=== PATIENT | male | born 1985 | race Caucasian/White ===

== ENCOUNTER 2020-07-06 16:32 | Observation (INO) ==
[2020-07-06] MEDS ORDERED: IOPAMIDOL 100 ML BOTTLE IV ONE (16:33)
[2020-07-06] MEDS ORDERED: 0.9 % SODIUM CHLORIDE 1,000 ML IV ONE (16:51)
[2020-07-06] MEDS ORDERED: ONDANSETRON 4 MG/2 ML VIAL IV ONE (16:51)
--- NOTE | 2020-07-06 16:57 | Emergency Department Note ---
HPI General Chief complaint: Constipation Stated complaint: constipation Time Seen by Provider: 07/06/20 16:35 Source: patient Mode of arrival: ambulatory Limitations: no limitations History of Present Illness HPI Narrative: Narrative: 34-year-old male patient presents emergency department with chief complaint of worsening abdominal discomfort, bloating, nausea, vomiting x4 days. Patient has known history of spina bifida and resulting neurogenic bowel/bladder. Over the last 4 days he has noticed every time he eats or drinks anything he becomes profusely nauseated and "vomited back up". Approximately 2 days ago he began to develop left lower quadrant abdominal pain. He had a scant bowel movement yesterday but nothing today. He does mention that his bowel movements tend to be erratic. Patient also admits to having a recent cold and a lingering nonproductive cough. He also admits to some mild runny nose. He denies any known Covid exposure. ROS: Denies systemic illness, fever, sweats, chills. Denies headaches, tinnitus, or vision changes. Admits to mild shortness of breath associated with his cough. Denies retrosternal chest pain or palpitations. Denies dysuria, hematuria, urinary frequency, or urinary urgency. Admits to ongoing generalized weakness greater to his lower extremities. Related Data Home Medications Medication Instructions Recorded Confirmed epinephrine 0.3 mg/0.3 mL 0.3 mg IM ONCE each 11/03/14 07/06/20 injection, auto-injector Allergies Allergy/AdvReac Type Severity Reaction Status Date / Time latex [LATEX] Allergy Severe Anaphylaxis Verified 03/14/20 06:58 Review of Systems ROS ROS Narrative: Narrative: All systems ED: reviewed and negative except as stated. [facility] Narrative Patient History Narrative: Narrative: Medical/Surgical/Family History All Active Problems (Updated 07/06/20 @ 20:09 by Israel Valles PA-C) Abdominal pain (Acute) Nausea & vomiting (Acute) Proctocolitis (Acute) Urinary tract infection (Acute) Urinary tract infection associated with catheterization of urinary tract (Acute) Bladder trabeculation (Acute) Neurogenic bladder (Acute 11/09/13) Diarrhea (Acute) Constipation (Acute) Medical History Bladder trabeculation (Acute) Constipation (Acute) Diarrhea (Acute) Neurogenic bladder (Acute 11/09/13) Surgical History History of adenoidectomy (Inactive) History of brain shunt (Inactive) hydrocephalus/revision History of hip surgery (Inactive) bilateral hip dyplasia with 2nd surg History of spinal cord injury (Inactive) 1987 removal of myelomeninglocoele for spinal bifita Status post left foot surgery (Inactive) 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 He is speaking complete sentences. No nasal flaring. No accessory muscle use. He is afebrile, mildly tachycardic with a heart rate of 109, other vital signs normal.) Head Head: Present normocephalic Eye Eye: Present normal appearance, PERRL and EOMI; Absent scleral icterus and conjunctival injection ENT ENT: Present normal oropharynx and mucous membranes dry Neck Neck: Present trachea midline; Absent lymphadenopathy and thyromegaly Chest Chest: Present symmetric chest wall rise Respiratory Respiratory: Present wheezes (Expiratory wheezing heard to the right base and mid chest.), prolonged expiratory phase and decreased breath sounds (Rhonchi heard to the right mid chest that did not clear with cough.); Absent normal lung sounds bilaterally, respiratory distress, rales/crackles, stridor and accessory muscle use Cardiovascular Cardiovascular: Present regular rate and normal rhythm; Absent systolic murmur and diastolic murmur Adbominal Abdominal: Present soft, distention, tenderness, diminished bowel sounds and scar (Several large well-healed surgical scars to the patient's abdomen.); Absent guarding, rebound, rigidity, organomegaly and mass Extremities Extremities: Present normal inspection and normal capillary refill; Absent full ROM and tenderness Neurological Neurological: Present alert, oriented X3 and motor sensory deficit (Considerably decreased strength to the patient's lower extremities secondary to spina bifida.); Absent normal gait (Patient is wheelchair-bound and does not ambulate independently.) Psychiatric Psychiatric: Present normal affect and normal mood Skin Skin: Present warm (WNL), dry and normal color Course Course Course Narrative: The differential diagnosis of diffuse abdominal pain in the adult patient is broad and includes the following: Bowel obstruction, perforation of the GI tract, acute/chronic mesenteric ischemia, abdominal aortic aneurysm (AAA), inflammatory bowel disease (ulcerative colitis/Crohn disease), viral gastroenteritis, spontaneous bacterial peritonitis, colorectal cancer, celiac disease, ketoacidosis, adrenal insufficiency, foodborne illness, IBS, constipation, diverticulosis, and lactose intolerance. Patient has known history of neurogenic bowel/bladder. He has been nauseated and vomiting any food or fluid that he intakes over the last several days. This is highly suggestive of bowel obstruction. He also has been ill with a cough and congestion for over a week. His lung sounds showed wheezing and rhonchi. I am going to get a portable chest x-ray as well as an abdominal x-ray series looking for abnormality. We are going to get some screening laboratory studies as well. Patient was given normal saline 1000 mL as a bolus. He was also given Zofran 4 mg IVP to help with his nausea. Reevaluation(s) Reevaluation #1: A review the patient's diagnostics of the following: CBC WBC 11.0, RBC 4.65, hemoglobin 12.7, hematocrit 39.1, platelets 404. Lactic acid 0.7. Chemistry panel glucose 115, ionized calcium 1.13, all others normal limits. Procalcitonin 0.11. Chest x-ray read as a normal chest by the radiologist. Abdominal x-ray is read as decompressed GI tract but no definitive evidence of bowel obstruction. There was mention of christian of calcification in the true pelvis which almost certainly collection of bladder stone spanning 4 cm. Radiologist also mentions severe right and moderate left congenital hip dysplasia. Patient continues to be symptomatic so I reached out to our general surgeon (Dr. Reyna) to discuss the case with him. Time: 18:15 Reevaluation #2: At this time the general surgeon was able to review the plain radiographs of the abdomen and did request a CT scan of the patient's ab domen/pelvis to be obtained to give a better understanding of the patient's condition. With this in mind the CT scan was ordered as requested. I went into discussed with the patient to then mention that she has had some lower pelvic burning coupled with the abdominal bloating. He does have known history of neurogenic bladder as well as frequent UTIs. We are going to obtain a catheter urine sample and perform a UAD looking for infection. Time: 18:28 Reevaluation #3: CT scan of the abdomen/pelvis with contrast shows evidence consistent with neurogenic bladder. There was mention of possible proctocolitis involving the descending and rectosigmoid colon as well as possible mild left abdominal small bowel ileus. I discussed the CT scan findings with the general surgeon who mentioned that the patient should be admitted to the hospital under observation. He wanted to review the CT scan results with the radiologist to determine the next steps of treatment. He requested the holding orders be placed for the patient and that he would follow him in the morning. I went and discussed the admission with the patient who verbalized understanding. At this time I will place holding orders as requested. Afterwards, all further treatment decisions, modalities, and ultimate patient disposition will be carried out by the general surgeon. Time: 20:07 Additional Reevaluation(s): 21:00 - Patient began to complain of some increased abdominal discomfort prior to departing the emergency department for the [facility] floor. He was given morphine 2 mg IVP here. An order for morphine 2 mg IVP every 46 hours as needed was also placed. Vital Signs Vital signs: Vital Signs Temperature 97.9 F 07/06/20 16:33 Pulse Rate 109 H 07/06/20 16:33 Respiratory Rate 16 07/06/20 16:33 Blood Pressure 145/97 07/06/20 16:33 Pulse Oximetry (%) 96 07/06/20 16:33 Temperature 97.9 F 07/06/20 16:33 Pulse Rate 109 H 07/06/20 16:33 Respiratory Rate 16 07/06/20 16:33 Blood Pressure 145/97 07/06/20 16:33 Pulse Oximetry (%) 96 07/06/20 16:33 [facility] MDM Narrative Medical decision making narrative: Narrative: Lab Data Lab results reviewed: Yes I reviewed the patient's lab results. Result diagrams: 07/06/20 17:17 Labs: Lab Results 02/07/06/20 07/06/20 Range/Units 17:17 17:17 17:17 WBC 11.0 (4.5-11.0) K/mcL RBC 4.65 (4.50-5.90) M/mcL Hgb 12.7 L (13.5-16.5) g/dL Hct 39.1 L (41.0-55.0) % POC Hct 40 L (41-55) % MCV 84.1 (80.0-100.0) fL MCH 27.3 (26.0-34.0) pg MCHC 32.5 (31.0-36.0) g/dL RDW 13.2 (11.5-14.5) % Plt Count 404 (140-440) K/mcL MPV 9.6 (7.4-10.4) fL Neut % (Auto) 62.5 (38.0-78.0) % Lymph % (Auto) 20.5 (15.0-49.0) % [place] % (Auto) 15.2 H (1.0-12.0) % Eos % (Auto) 1.3 (0.0-7.0) % Baso % (Auto) 0.5 (0.0-2.0) % Lymph # (Auto) 2.26 (1.50-4.80) K/mcL [place] # (Auto) 1.67 H (0.10-0.90) K/mcL Eos # (Auto) 0.14 (0.00-0.70) K/mcL Baso # (Auto) 0.06 (0.00-0.20) K/mcL Absolute Neutrophils 6.89 (1.80-8.00) K/mcL VBG Lactic Acid 0.7 (0.5-2.0) mmol/L POC Sodium 140 (133-145) mEq/L POC Potassium 3.4 (3.3-5.1) mEql/L POC Chloride 102 (96-108) mEq/L POC Total CO2 27 (22-30) mmol/L POC BUN 10 (6-20) mg/dL POC Creatinine 0.6 (0.6-1.2) mg/dL POC Glucose 115 H (70-105) mg/dL POC WB Ioniz Calcium 1.13 L (1.16-1.32) mmEq/L Procalcitonin (<0.10) ng/mL 07/06/20 Range/Units 17:17 WBC (4.5-11.0) K/mcL RBC (4.50-5.90) M/mcL Hgb (13.5-16.5) g/dL Hct (41.0-55.0) % POC Hct (41-55) % MCV (80.0-100.0) fL MCH (26.0-34.0) pg MCHC (31.0-36.0) g/dL RDW (11.5-14.5) % Plt Count (140-440) K/mcL MPV (7.4-10.4) fL Neut % (Auto) (38.0-78.0) % Lymph % (Auto) (15.0-49.0) % [place] % (Auto) (1.0-12.0) % Eos % (Auto) (0.0-7.0) % Baso % (Auto) (0.0-2.0) % Lymph # (Auto) (1.50-4.80) K/mcL [place] # (Auto) (0.10-0.90) K/mcL Eos # (Auto) (0.00-0.70) K/mcL Baso # (Auto) (0.00-0.20) K/mcL Absolute Neutrophils (1.80-8.00) K/mcL VBG Lactic Acid (0.5-2.0) mmol/L POC Sodium (133-145) mEq/L POC Potassium (3.3-5.1) mEql/L POC Chloride (96-108) mEq/L POC Total CO2 (22-30) mmol/L POC BUN (6-20) mg/dL POC Creatinine (0.6-1.2) mg/dL POC Glucose (70-105) mg/dL POC WB Ioniz Calcium (1.16-1.32) mmEq/L Procalcitonin 0.11 H (<0.10) ng/mL Radiology Data Radiology results reviewed: Yes I reviewed the patient's radiology results. Radiology results narrative: Ordering Physician: Israel Valles PA-C Date of Service: 07/06/20 Procedure(s): XR chest 1V portable Accession Number(s): [id number] CLINICAL INFORMATION: Cough COMPARISON: None. TECHNIQUE: Portable FINDINGS: The heart size, mediastinum and pulmonary vessels are unremarkable. The lungs are clear. There are no effusions. CUSTOMER RESOLUTION SPECIALIST shunt catheter overlies the right neck and chest. The bones and soft tissues are within normal limits. IMPRESSION: Normal chest. Ordering Physician: Israel Valles PA-C Date of Service: 07/06/20 Procedure(s): XR abdomen 2V Accession Number(s): [id number] CLINICAL INFORMATION: Abd pain, bloating, constipation, N/V X 4 days. COMPARISON: None. FINDINGS: CUSTOMER RESOLUTION SPECIALIST shunt catheter extends over the right lower chest and right abdomen traversing across the false pelvis. The tip is in the left midabdomen. The GI tract is relatively decompressed with small amount of gas seen within the stomach and transverse colon with minimal amounts the small bowel. There is no free air, soft tissue mass or definite ascites. Baptist of calcifications in the true pelvis overlies the urinary bladder. This spans 4.1 cm and likely represents bladder stone. Severe right and moderate left hip dysplasia. IMPRESSION: 1. Decompressed GI tract. No definite evidence for bowel obstruction. 2. Baptist of calcifications in the true pelvis are almost certainly a collection of bladder stones spanning 4 cm 3. Severe right and moderate left congenital hip dysplasia. Interpreted and Authenticated by: Jules Almeida 07/06/20 Contrast-enhanced CT scan of the abdomen/pelvis read by the radiologist as thickened bladder wall with mucosal enhancement consistent with neurogenic bladder. There was mention of component of cystitis is not excluded. There is multiple bladder calculi and calculi in the prostatic urethra. Moderate to severe bilateral hydroureter ureter nephrosis which is likely related to thickened bladder wall. Radiologist does mention possible proctocolitis involving the descending rectosigmoid colon versus pseudowall thickening due to incomplete distention. He recommends clinical correlation. There is mention of a possible mild left abdominal small bowel ileus. Spina bifida with a 4 x 3 x 7 cm probable meningocele was also mentioned. Discharge Plan Patient/Caregiver Discharge Instructions Pt seen by NUT AND BOLT ASSEMBLER/PA only: Yes Clinical Impression: Proctocolitis Abdominal pain Qualifiers: Abdominal location: generalized Qualified Code(s): R10.84 - Generalized abdominal pain Nausea & vomiting Qualifiers: Vomiting type: unspecified Vomiting Intractability: non-intractable Qualified Code(s): R11.2 - Nausea with vomiting, unspecified Patient Disposition: Xfer As Outpt/Obs ([facility]) Condition: Good
[2020-07-06 17:26] LABS: POC Blood Urea Nitrogen 10 mg/dL (6-20); POC CO2 27 mmol/L (22-30); POC Calcium, Ionized 1.13 mmEq/L (1.16-1.32); POC Chloride 102 mEq/L (96-108); POC Creatinine 0.6 mg/dL (0.6-1.2); POC Glucose, Random 115 mg/dL (70-105); POC Hematocrit 40 % (41-55); POC Potassium 3.4 mEql/L (3.3-5.1); POC Sodium 140 mEq/L (133-145)
--- NOTE | 2020-07-06 17:36 | XRay Report ---
CLINICAL INFORMATION: Abd pain, bloating, constipation, N/V X 4 days. COMPARISON: None. FINDINGS: CANE FURNITURE MAKER shunt catheter extends over the right lower chest and right abdomen traversing across the false pelvis. The tip is in the left midabdomen. The GI tract is relatively decompressed with small amount of gas seen within the stomach and transverse colon with minimal amounts the small bowel. There is no free air, soft tissue mass or definite ascites. Worship of calcifications in the true pelvis overlies the urinary bladder. This spans 4.1 cm and likely represents bladder stone. Severe right and moderate left hip dysplasia. IMPRESSION: 1. Decompressed GI tract. No definite evidence for bowel obstruction. 2. Worship of calcifications in the true pelvis are almost certainly a collection of bladder stones spanning 4 cm 3. Severe right and moderate left congenital hip dysplasia. Interpreted and Authenticated by: Jules Almeida 07/06/20
--- NOTE | 2020-07-06 17:38 | XRay Report ---
CLINICAL INFORMATION: Cough COMPARISON: None. TECHNIQUE: Portable FINDINGS: The heart size, mediastinum and pulmonary vessels are unremarkable. The lungs are clear. There are no effusions. STRIP ROLLER shunt catheter overlies the right neck and chest. The bones and soft tissues are within normal limits. IMPRESSION: Normal chest. Interpreted and Authenticated by: Jules Almeida 07/06/20
[2020-07-06 18:01] LABS: Basophils # (Auto) 0.06 K/mcL (0.00-0.20); Basophils % (Auto) 0.5 % (0.0-2.0); Eosinophils # (Auto) 0.14 K/mcL (0.00-0.70); Eosinophils % (Auto) 1.3 % (0.0-7.0); Hematocrit 39.1 % (41.0-55.0); Hemoglobin 12.7 g/dL (13.5-16.5); Lymphocytes # (Auto) 2.26 K/mcL (1.50-4.80); Lymphocytes % (Auto) 20.5 % (15.0-49.0); Mean Cell Volume 84.1 fL (80.0-100.0); Mean Corpuscular HGB Conc 32.5 g/dL (31.0-36.0); Mean Platelet Volume 9.6 fL (7.4-10.4); Monocytes # (Auto) 1.67 K/mcL (0.10-0.90); Monocytes % (Auto) 15.2 % (1.0-12.0); Neutrophils % (Auto) 62.5 % (38.0-78.0); Platelet Count 404 K/mcL (140-440); RBC 4.65 M/mcL (4.50-5.90); Red Cell Distribution Width 13.2 % (11.5-14.5)
[2020-07-06] MEDS ORDERED: ONDANSETRON 4 MG/2 ML VIAL IV PRN (20:09)
[2020-07-06] MEDS ORDERED: morphine 2 MG/ML VIAL IV ONE (20:53)
[2020-07-06] MEDS ORDERED: DIATRIZOATE MEGLU/DIATRIZO SOD 30 ML BOTTLE PO ONE (21:38)
[2020-07-06] MEDS: 0.9 % SODIUM CHLORIDE 1,000 ML IV SCH (22:09)
[2020-07-06] MEDS: 0.9 % SODIUM CHLORIDE 10 ML SYRINGE IV SCH (23:36)
[2020-07-07] MEDS: morphine 2 MG/ML VIAL IV PRN ×3 (04:05→17:48)
[2020-07-07] MEDS: 0.9 % SODIUM CHLORIDE 1,000 ML IV SCH ×6 (05:51→23:05)
[2020-07-07] MEDS: 0.9 % SODIUM CHLORIDE 10 ML SYRINGE IV SCH ×3 (06:00→20:17)
--- NOTE | 2020-07-07 06:17 | Cat Scan Report ---
CLINICAL INFORMATION: Abdominal pain and distention. History of Chiari II malformation and spina bifida COMPARISON: 10/21/[address] without contrast TECHNIQUE: Following enteric contrast, 80 cc of Isovue-[id number] were injected intravenously, and 60 seconds later, 0.625 mm helical slices were obtained from the mid heart through the subtrochanteric regions. Following reconstruction, 2.5 mm sagittal, coronal and axial reformatted images were processed and reviewed at bone, lung and soft tissue windows. Five minutes later, 0.625 mm helical slices were obtained from the mid heart through the kidneys and viewed at soft tissue windows.The exam was performed using radiation dose optimization techniques including, but not limited to, automated exposure control, adjustment of the mA and/or kV according to patient size and use of iterative reconstruction technique. FINDINGS: Lung bases show vague patchy groundglass infiltrate in the posterior left lower lobe which was not seen on the previous study. It may indicate developing pneumonia. Subsegmental atelectasis seen in the paramediastinal right middle lobe No no effusions. The the visualized heart is normal in size. Abdominal images show minimal fatty change within the liver which are stable. No focal hepatic lesion. The gallbladder and bile ducts are normal: CBD is 5 mm. Both adrenal glands, spleen, pancreas and aorta, including aortic branches, are normal in size, configuration and attenuation without focal lesion. There is no free air, free fluid or adenopathy. Both kidneys are normal and symmetric in size, position, configuration and attenuation: The left is 11.9 cm in length and the right is 11.3 cm in length. Severe bilateral hydronephrosis/hydroureter due to neurogenic bladder is unchanged. Urinary bladder is reduced in volume with marked thickening and trabeculation of bladder wall compatible neurogenic bladder. A large mormonism of bladder stones, spanning 5 cm, is unchanged. Prostate and seminal vesicles are unremarkable. The stomach, small bowel, appendix and large bowel are grossly normal. BUILDING CONSTRUCTION ESTIMATOR shunt catheter extends along the subcutaneous fat of the right lower chest wall and right midabdomen penetrating abdominal wall musculature at mid abdomen traversing leftward across the false pelvis. The tip is in the left midabdomen mesenteric cavity. L5-S1 spina bifida with a 7.1 x 2.6 cm encapsulated fluid collection in the expected location of the lamina is unchanged and, presumably, represents a myelomeningocele or meningocele. History of Chiari II malformation is acknowledged. No other osseous abnormalities. IMPRESSION: 1. Urinary bladder shows marked reduced volume and marked wall thickening and trabeculation compatible with neurogenic bladder . This has resulted in severe chronic bilateral hydronephrosis/hydroureter. No change from prior CT. 2. Collection of large bladder stones spanning 5 cm in the urinary bladder - also stable. 3. L5-S1 spina bifida with 2.6 x 7.1 cm meningocele or meningocele stable. History of Chiari II malformation acknowledged 4. Possible developing left lower lobe pneumonia. Suggest plain film follow-up if there are symptoms Interpreted and Authenticated by: Jules Almeida 07/07/20
--- NOTE | 2020-07-07 10:35 | General Surg History&Physical ---
HPI History of Present Illness Patient information: Note initiated : 07/07/20 at 10:20 am Service Date, if different from initiated Date: [] Patient: Callum Morris a 34 y/o M admitted on 07/06/20 for constipation. Chief Complaint: [] Chief complaint: Abdominal pain nausea and vomiting History of present illness: Mr. Morris is a 34 year old M admitted for evaluation of increasing abdominal pain with vomiting. He has had a 4-day history of not being able to keep down food or liquids. He has noted decrease in flatus and stools. His last stool was 2 days ago and was very small. He has not had diarrhea. He has not had rectal bleeding. He has primarily upper abdominal pain but also has some suprapubic pain. On close questioning the suprapubic pain is chronic since he has a neurogenic bladder and has intermittent disten tion and spasm. He denies nausea. He states that when he eats or drinks he immediately has emesis that ingested intake however does not have nausea associated with it. He relates onset of symptoms after he had an acute viral syndrome. He has not had Covid exposure and there is no evidence of Covid infection at this time. He has been afebrile and does not have leukocytosis. CT scan performed during the evening was interpreted as showing proctocolitis however our radiologist feels that this is simply a decompressed nondilated colon. There are no clinical findings or history to suggest proctocolitis. Constitutional Constitutional: Present anorexia, fatigue and malaise EENT Eyes: Absent irritation and loss of vision Ears: Absent decreased hearing and tinnitus Nose, mouth and throat: Present disequilibrium; Absent abnormal hearing Cardiovascular Cardiovascular: Absent chest pain, chest pain with activity, dyspnea and palpatations Respiratory Respiratory: Absent cough and wheezing Gastrointestinal Gastrointestinal: Present abdominal pain, belching, constipation and cramping; Absent excessive flatus and loose stools Genitourinary Genitourinary: change in urinary stream, difficulty urinating, flank pain, noct uria, post void dribbling, urinary frequency, urinary hesitancy, urinary incontinence and urinary urgency Musculoskeletal Musculoskeletal: Present abnormal gait (Spina bifida with lower extremity weakness), arthralgias, back pain, deformity (Pelvis and lower extremity), limited range of motion, muscle cramps, myalgias, numbness and radiating pain into limb Integumentary Integumentary: Absent changing lesions and pruritus Neurological Neurological: Present abnormal gait Psychiatric Psychiatric: Present depression Endocrine Endocrine: Absent flushing, palpitations, polydipsia and polyphagia Hematologic/Lymphatic Hematologic/Lymphatic: Absent easy bleeding, easy bruising and lymphadenopathy Allergic/Immunologic Allergic/Immunologic: Absent tongue swelling, throat swelling, uticaria and wheezing PFSH PFSH All Active Problems (Updated 07/07/20 @ 10:34 by Angela Reyna MD) Spina bifida aperta of sacral region with hydrocephalus (Acute) Recurrent generalized abdominal pain (Acute) Abdominal pain (Acute) Nausea & vomiting (Acute) Proctocolitis (Acute) Urinary tract infection (Acute) Urinary tract infection associated with catheterization of urinary tract (Acute) Bladder trabeculation (Acute) Neurogenic bladder (Acute 11/09/13) Diarrhea (Acute) Constipation (Acute) Medical History (Updated 07/07/20 @ 10:34 by Angela Reyna MD) Bladder trabeculation Constipation Diarrhea Neurogenic bladder (11/09/13) Surgical History History of adenoidectomy History of brain shunt hydrocephalus/revision History of hip surgery bilateral hip dyplasia with 2nd surg History of spinal cord injury 1987 removal of myelomeninglocoele for spinal bifita Status post left foot surgery 1988 club foot Status post repair of ligament of ankle R Family History Unknown Cardiac disease Hyperlipidemia Essential hypertension Cerebrovascular accident Mother Malignant Neoplasm of Thyroid Gland Social History marital status: single education level: high school occupational status: disabled smoking status: Never smoker alcohol intake frequency: holiday/special occasion only substance use type: does not use MEDS/ALLERGIES Home Medications and Allergies Home Medications Medication Instructions Recorded Confirmed Type epinephrine 0.3 mg/0.3 mL 0.3 mg IM ONCE each 11/03/14 07/06/20 History injection, auto-injector Allergies Allergy/AdvReac Type Severity Reaction Status Date / Time latex [LATEX] Allergy Severe Anaphylaxis Verified 03/14/20 06:58 Physical Examination Vital Signs Vital signs: Temp Pulse Resp BP Pulse Ox 98.7 F 96 H 18 147/96 97 07/07/20 07:01 07/07/20 07:01 07/07/20 08:40 07/07/20 07:01 07/07/20 08:40 General physical appearance General physical exam: well developed, well nourished, no distress, no pain and chronically ill Eyes Eye exam: PERRL and normal ocular movement; negative icteric ENT ENT exam: normal mucosa and no congestion Head Head exam IM: Present atraumatic, normal inspection and normocephalic Neck Neck exam: no masses, no bruits, trachea midline, no lymphadenopathy and no venous distension Cardiovascular Cardiovascular exam IM: Present normal rate and rhythm, RRR, +S1 and +S2; Absent gallop and JVD Respiratory Respiratory exam: normal expansion, normal respiratory effort and clear to auscultation Abdomen Abdomen: Present soft, non tender and surgical scars; Absent organomegaly, masses, rigid and rebound Integumentary Integumentary: Present no rash, no growths and other (Decreased movement of both hips; bony deformity of the both lower extremities) Neurologic Neurologic: Present other (Paraplegia extending from pelvis down ) Musculoskeletal Musculoskeletal: Present other (Bony deformity of the lower spine and both lower extremities) Psychiatric Psychiatric: Present oriented to time, oriented to person, oriented to place, speech is normal and memory intact Results Labs Result diagrams: 07/06/20 17:17 Labs: Abnormal lab results 07/06/20 07/06/20 07/06/20 Range/Units 17:17 17:17 17:17 Hgb 12.7 L (13.5-16.5) g/dL Hct 39.1 L (41.0-55.0) % POC Hct 40 L (41-55) % Stanton % (Auto) 15.2 H (1.0-12.0) % Stanton # (Auto) 1.67 H (0.10-0.90) K/mcL POC Glucose 115 H (70-105) mg/dL POC WB Ioniz Calcium 1.13 L (1.16-1.32) mmEq/L Procalcitonin 0.11 H (<0.10) ng/mL All other labs normal. A/P Assessment and plan (1) Recurrent generalized abdominal pain: Status: Acute (2) Constipation: Status: Acute Qualifiers: Constipation type: slow transit constipation Qualified Code(s): K59.01 - Slow transit constipation (3) Neurogenic bladder: Status: Acute (4) Urinary tract infection associated with catheterization of urinary tract: Status: Acute Qualifiers: Encounter type: subsequent encounter Indwelling urinary catheter type: unspecified Qualified Code(s): T83.511D - Infection and inflammatory reaction due to indwelling urethral catheter, subsequent encounter; N39.0 - Urinary tract infection, site not specified (5) Spina bifida aperta of sacral region with hydrocephalus: Status: Acute Narrative A/P Narrative: Patient will receive antiemetics and analgesics as needed Upper GI with small bowel follow-through and contrast study of colon will be performed X-rays of abdomen will be performed in the morning to assure complete evacuation of contrast We will start metoclopramide after the contrast study is completed. Time Spent With Patient Time: Total time spent is greater than 50% in coordination of care (as documented) at patient's floor/unit and/or counseling patient:
[2020-07-07] MEDS ORDERED: METOCLOPRAMIDE 10 MG/2 ML VIAL IV PRN (10:52)
[2020-07-07] MEDS ORDERED: PROMETHAZINE 25 MG/ML VIAL IV PRN (12:26)
[2020-07-07] MEDS: PHENAZOPYRIDINE 200 MG TABLET PO PRN ×2 (12:28→20:22)
[2020-07-07] MEDS ORDERED: METOCLOPRAMIDE 10 MG/2 ML VIAL IV SCH (12:30)
--- NOTE | 2020-07-07 15:16 | XRay Report ---
CLINICAL INFORMATION: Abdominal pain and distention evaluate for small and large bowel obstruction COMPARISON: Abdomen and pelvic CT 07/06/2020 TECHNIQUE: Following order to delivery supervisor film, water-soluble contrast was administered orally and imaging was obtained the of stomach small and large bowel over the course of one hour FINDINGS: The stomach, small and large bowel are normal in contour and caliber. There is no evidence of obstruction or focal pathology. Bowel transit time is rapid: Approximately 60 minutes IMPRESSION: Normal stomach small and large bowel: no evidence of small or large bowel obstruction Interpreted and Authenticated by: Jules Almeida 07/07/20
[2020-07-07] MEDS ORDERED: HYDROmorphone 0.5 MG/0.5 ML SYRINGE IV PRN (22:32)
[2020-07-07] MEDS ORDERED: oxyCODONE HCL 5 MG TABLET PO PRN (22:32)
[2020-07-07] MEDS ORDERED: ACETAMINOPHEN 1,000 MG/100 ML BAG IV PRN (22:32)
[2020-07-07] MEDS ORDERED: ACETAMINOPHEN 1,000 MG/100 ML BAG IV ONE (23:09)
[2020-07-08] MEDS: 0.9 % SODIUM CHLORIDE 1,000 ML IV SCH ×3 (01:27→07:55)
[2020-07-08] MEDS: 0.9 % SODIUM CHLORIDE 10 ML SYRINGE IV SCH (04:27)
[2020-07-08] MEDS ORDERED: OXYBUTYNIN CHLORIDE 5 MG TABLET PO SCH (09:00)
[2020-07-08] MEDS: PHENAZOPYRIDINE 200 MG TABLET PO PRN (10:40)
--- NOTE | 2020-07-08 11:39 | Discharge Summary ---
Discharge Provider Provider Patient information: Note initiated : 07/08/20 at 11:32 am Service Date, if different from initiated Date: [] Patient: Callum Morris 34 y/o M admitted on 07/06/20 for constipation. Chief Complaint: [] Date of admission: 07/06/20 21:37 Discharge date: 07/08/20 Primary care physician: SACHA Cazares Admitting clinician: Angela Reyna Consults: 07/07/20 07:05 Consult to Physician [CONS] Routine Comment: Consulting Provider: Angela Reyna Reason For Exam: Physician to Consult Attending physician on discharge: Angela Reyna Discharging clinician: Angela Reyna COURSE Hospital Course Hospital course: 34-year-old male with history of hydrocephalus and spina bifida with neurogenic bladder. He presented with 4-day history of diffuse abdominal pain with recurrent episodes of nausea vomiting. Basic labs were unremarkable however he did have an element of constipation and CT suggesting proctocolitis. Follow-up review of the CT with the radiologist suggested that there were no abnormalities of the colon but that the patient might have partial intestinal obstruction. A CT with contrast was done and followed to the rectum. He was noted to have normal stomach small bowel and colon. The patient was treated for the nausea and vomiting and was given analgesics. He has done well in the interim and is now tolerating diet without difficulty and having multiple bowel movements. He has chronic bladder spasms which has been a lifelong problem. He does have a chronic urinary tract infection which has been treated with multiple antibiotics in the past. He is not fairly symptomatic so this this was not treated. Patient is clinically stable at this time and is discharged home with plans for follow-up with his primary care provider and urologist. Discharge diagnosis: Chronic abdominal pain Secondary discharge diagnosis: Constipation Chronic urinary tract infections Spina bifida with chronic bladder outlet symptoms Reason for admission: Recurrent abdominal pain with nausea vomiting Procedures: None Pertinent studies/significant findings: CT of abdomen with oral contrast Complications: None Time Spent with Patient Time attestation: Total time spent providing and/or coordinating discharge services: Physical Examination Vital Signs Vital signs: Temp Pulse Resp BP Pulse Ox 97.2 F 84 16 121/73 94 07/08/20 10:40 07/08/20 06:27 07/08/20 07:33 07/08/20 06:27 07/08/20 07:33 General physical appearance General physical exam: well developed, well nourished, no distress, no pain and chronically ill Eyes Eye exam: PERRL and normal ocular movement; negative icteric ENT ENT exam: normal mucosa and no congestion Head Head exam IM: Present atraumatic, normal inspection and normocephalic Cardiovascular Cardiovascular exam IM: Present normal rate and rhythm, RRR, +S1 and +S2; Absent gallop and JVD Respiratory Respiratory exam: normal expansion, normal respiratory effort and clear to auscultation Abdomen Abdomen: Present soft, non tender and surgical scars; Absent organomegaly, masses, rigid and rebound Integumentary Integumentary: Present no rash, no growths and other (Decreased movement of both hips; bony deformity of the both lower extremities) Neurologic Neurologic: Present other (Paraplegia extending from pelvis down ) Musculoskeletal Musculoskeletal: Present other (Bony deformity of the lower spine and both lower extremities) Psychiatric Psychiatric: Present oriented to time, oriented to person, oriented to place, speech is normal and memory intact Discharge Plan Patient/Caregiver Discharge Instructions Activity: increase activity as tolerated and resume usual activities as tolerated Diet: Regular Diet Prescriptions: New oxybutynin chloride [Ditropan XL] 5 mg tablet extended release 24hr 5 mg PO QDAY Qty: 30 RF: 1 No Action epinephrine 0.3 mg/0.3 mL (1:1,000) auto-injector 0.3 mg IM ONCE RF: 0 Follow Up Plan Follow up with: Barak Odom ARNP [Primary Care Provider] - Patient Disposition: Home, Self-Care Prognosis: Good Rehab Potential: Fair I certify that the patient requires SNF services: No Overall status at discharge: patient is back to baseline Discharge Orders: Discharge Order (Routine); Ordered 07/08/20 Ordered By: Angela Reyna Pending Pending Pending: Resuscitation Status Full Code Diet GI Soft/Transitional Start Sat Jul 08 0600 Sodium Chloride (Sodium Chloride 0.9%) 1,000 mls @ 150 mls/hr IV .[id number] [facility] Last Admin: 07/08/20 07:55 Dose: 150 mls/hr Documented by: Infusion: 07/08/20 07:55 Dose: 150 mls/hr Documented by: Admin: 07/08/20 04:27 Dose: Not Given Documented by: Admin: 07/08/20 01:27 Dose: 150 mls/hr Documented by: Infusion: 07/08/20 01:09 Dose: 150 mls/hr Documented by: Admin: 07/07/20 23:05 Dose: Not Given Documented by: Admin: 07/07/20 18:28 Dose: 150 mls/hr Documented by: Infusion: 07/07/20 18:23 Dose: 150 mls/hr Documented by: Admin: 07/07/20 16:16 Dose: Not Given Documented by: Admin: 07/07/20 11:42 Dose: 150 mls/hr Documented by: Infusion: 07/07/20 11:42 Dose: 150 mls/hr Documented by: Admin: 07/07/20 10:41 Dose: Not Given Documented by: Admin: 07/07/20 05:51 Dose: 150 mls/hr Documented by: Infusion: 07/07/20 03:05 Dose: 150 mls/hr Documented by: Admin: 07/06/20 22:09 Dose: 150 mls/hr Documented by: TRISTEN Acetaminophen (Ofirmev) 1,000 mg in 100 mls @ 200 mls/hr IV Q6HP PRN; Protocol PRN Reason: Per Pain Protocol/Fever > 101 Last Admin: 07/08/20 10:40 Dose: 200 mls/hr Documented by: MU Ondansetron HCl (Ondansetron 4 Mg/2 Ml Vial) 4 mg IV Q6HP PRN PRN Reason: Nausea And Vomiting Last Admin: 07/07/20 12:31 Dose: 4 mg Documented by: MU Oxybutynin Chloride (Oxybutynin Chloride 5 Mg Tablet) 5 mg PO BID PHUONG Last Admin: 07/08/20 07:55 Dose: 5 mg Documented by: MU Phenazopyridine HCl (Phenazopyridine 200 Mg Tablet) 200 mg PO TIDP PRN PRN Reason: PAINFUL URINATION Last Admin: 07/08/20 10:40 Dose: 200 mg Documented by: Admin: 07/07/20 20:22 Dose: 200 mg Documented by: Admin: 07/07/20 12:28 Dose: 200 mg Documented by: MU Sodium Chloride (0.9 % Sodium Chloride 10 Ml Syringe) 10 ml IV Q8 PHUONG Last Admin: 07/08/20 04:27 Dose: Not Given Documented by: Admin: 07/07/20 20:17 Dose: Not Given Documented by: Admin: 07/07/20 13:49 Dose: Not Given Documented by: Admin: 07/07/20 06:00 Dose: Not Given Documented by: Admin: 07/06/20 23:36 Dose: Not Given Documented by: TRISTEN Shift Summary 07/08/20 02:55 Shift Summary by Michelle Al Pt is A&Ox4 and able to make needs known. Hx of spina bifida with multiple surgeries. has decreased sensation to bilat lower extremeties but can feel pressure. Can turn himself well. pt is wheelchair bound. ulcers to the right hip and bilateral buttocks. right hip with mepilex changed 07/07. buttock ulcers left open to air as patient is incontinent of bowel and bladder. pt has hx of straight cathing himself but told this RN he does not anymore. Pt having liquid stools x3, urine is orange as he has received pyridium. IV to the right wrist 20 guage running NS at 150 ml/hr. pt is on full liquid diet and tolerating well, advancing diet to GI soft for breakfast time. Pt has had no nausea or vomiting. pt turns and repositions self well. Pt given offirmev x1 for 3/10 pain with spasm sensations, this had a good effect and brought pain to 0/10. given pyr idium x1 for bladder pain/spasms however pt said this did not work. will update at bedside. Initialized on 07/08/20 02:55 - END OF NOTE
== END 2020-07-08 13:25 | disposition home or self-care (01) ==
LOC: ED 16:32 → MEDSUR 16:32
PROVIDERS: ADMIT Family Medicine Adult Medicine; ATTEND Family Medicine Adult Medicine